=== PATIENT | male | born 1985 | race Two or more races ===

== ENCOUNTER 2017-06-10 01:55 | Emergency (ER) | payer OTHER ==
--- NOTE | 2017-06-10 03:31 | ED PDOC ---
HPI: Psych/Substance Abuse Time Seen by Provider: 06/10/17 01:59 Chief Complaint (Nursing): Alcohol Ingestion Chief Complaint (Provider): Alcohol Ingestion History Per: Patient History/Exam Limitations: intoxication Onset/Duration Of Symptoms: Other (prior to arrival) Current Symptoms Are (Timing): Still Present Additional Complaint(s): 31 year old male with no significant past medical history, who presents to the ED due to alcohol intoxication. Patient admits to drinking alcohol today. Denies drug use or injury. States he doesn't know how much he drank. PMD: None provided Supervising Attending Note - Attestation: I have personally seen and examined this patient.: Yes I have fully participated in the care of the patient.: Yes I have reviewed all pertinent clinical information, including history, physical exam and plan: Yes Past Medical History Reviewed: Historical Data, Nursing Documentation, Vital Signs Vital Signs: Last Vital Signs Temp 97.6 F 06/10/17 01:57 Pulse 115 H 06/10/17 01:57 Resp 18 06/10/17 01:57 BP 144/85 06/10/17 01:57 Pulse Ox 95 06/10/17 01:57 - Family History Family History: States: Unknown Family Hx - Allergies Allergies/Adverse Reactions: Allergies Allergy/AdvReac Type Severity Reaction Status Date / Time Unobtainable Allergy Verified 06/10/17 01:57 Review of Systems Review Of Systems: ROS cannot be obtained secondary to pt's inabilty to answer questions. Physical Exam - Reviewed Nursing Documentation Reviewed: Yes Vital Signs Reviewed: Yes - Physical Exam Appears: Positive for: Non-toxic, No Acute Distress (intoxicated, no injuries, no trauma) Head Exam: Positive for: ATRAUMATIC, NORMAL INSPECTION, NORMOCEPHALIC Skin: Positive for: Normal Color, Warm, Dry. Negative for: Rash Eye Exam: Positive for: EOMI, Normal appearance, PERRL Neck: Positive for: Normal, Painless ROM, Supple Cardiovascular/Chest: Positive for: Regular Rate, Rhythm. Negative for: Murmur Respiratory: Positive for: Normal Breath Sounds. Negative for: Respiratory Distress Gastrointestinal/Abdominal: Positive for: Normal Exam, Bowel Sounds, Soft. Negative for: Tenderness Back: Positive for: Normal Inspection. Negative for: L CVA Tenderness, R CVA Tenderness, Vertebral Tenderness Extremity: Positive for: Normal ROM. Negative for: Pedal Edema, Deformity Neurologic/Psych: Positive for: Alert, Oriented (x3), Gait (unsteady). Negative for: Motor/Sensory Deficits - ECG O2 Sat by Pulse Oximetry: 95 (RA) Pulse Ox Interpretation: Normal Medical Decision Making Medical Decision Making: Time: 02:06 Initial Impression: Alcohol intoxication Initial Plan: --Alcohol serum --Glucose, Blood, POC --Reevaluation 0700 Pt. still too intoxicated, will endorse to Dr. Howell pending sobriety and final disposition. Scribe Attestation: Documented by Sandip Jimenez, acting as a scribe for Noah Brunson MD. Provider Scribe Attestation: All medical record entries made by the Scribe were at my direction and personally dictated by me. I have reviewed the chart and agree that the record accurately reflects my personal performance of the history, physical exam, medical decision making, and the department course for this patient. I have also personally directed, reviewed, and agree with the discharge instructions and disposition. Disposition - Clinical Impression Clinical Impression: Alcohol abuse - Patient ED Disposition Is Patient to be Admitted: Transfer of Care - Disposition Disposition: Transfer of Care Disposition Time: 07:00 Condition: STABLE Forms: [facility] (Cam[place]onian) Patient Signed Over To: Jimi Alvarado Handoff Comments: pending sobriety.
--- NOTE | 2017-06-10 08:26 | ED PDOC ---
- ECG O2 Sat by Pulse Oximetry: 95 (RA) Pulse Ox Interpretation: Normal - Progress ED Course And Treament: 826: Stable. Took over care from Dr. Brunson. Pending sobriety. 945: Stable. AAOx3. Tolerated po. Ambulated with no issues. Fu with pcp. Disposition - Clinical Impression Clinical Impression: Alcohol abuse - POA Present On Arrival: None - Disposition Referrals: [facility] [Outside] - 06/12/17 Disposition: Routine/Home Disposition Time: 09:47 Condition: STABLE Additional Instructions: Return if not better in 3 days. Instructions: Effects of Alcohol on Your Health Forms: [facility] (Bangladeshi)
[2017-06-10 10:09] VITALS: BP 124/74; PULSE 72; RESP 20; TEMP 98.6; O2SAT 98
== END 2017-06-10 10:37 | disposition home or self-care (01) ==
LOC: H.ER 01:55
DX: F10.129 Alcohol abuse with intoxication, unspecified (principal)